=== PATIENT | male | born 1985 | race Caucasian/White ===

== ENCOUNTER 2019-02-24 15:37 | Outpatient (REF) | payer BC, SELFPAY ==
[2019-02-24 21:23] LABS: Abs Immature Grans 0.01 k/cumm (0.0-0.09); Absolute Basophil Count 0.03 k/cumm (0.0-0.2); Absolute Eosinophil Count 0.11 k/cumm (0.0-0.7); Absolute Lymphocyte Count 2.18 k/cumm (1.2-3.4); Absolute Monocyte Count 0.79 k/cumm (0.11-0.7); Absolute Neutrophil Count 6.55 k/cumm (1.2-6.7); Basophils % 0.3; Eosinophils % 1.1; HGB 14.5 g/dL (13.5-17.5); Immature Grans % 0.1; Lymphocytes % 22.5; Mean Corp. HGB Concentration 34.5 g/dL (32.0-36.0); Mean Corpuscular Hemoglobin 29.4 pg (27.0-33.0); Mean Corpuscular Volume 85.2 fL (80-95); Monocytes % 8.2; Neutrophils % 67.8; Platelet Count 195 x1000/uL (130-400); RBC 4.93 m/cumm (4.50-6.00); RBC Distribution Width 12.1 % (11.8-14.1); White Blood Cell Count 9.67 k/cumm (4.4-10.8)
[2019-02-24 21:28] LABS: ALT 29 U/L (12-78); AST 12 U/L (15-37); Alkaline Phosphatase 79 U/L (46-116); Anion Gap 8.4 mmol/L (3-11); BUN 14 mg/dL (7-18); Bilirubin, Total 0.5 mg/dL (0.2-1.0); CO2 26.6 mmol/L (21.0-32.0); CREATININE 0.88 mg/dL (0.70-1.30); Calcium 9.4 mg/dL (8.5-10.1); Chloride 107 mmol/L (98-107); Glucose 103 mg/dL (70-100); Sodium 142 mmol/L (136-145); TSH 0.61 uIU/mL (0.36-3.74); Total Protein 6.8 g/dL (6.4-8.2)
== END 2019-02-24 15:57 ==
LOC: NCHCN 15:37
PROVIDERS: PCP Nurse Practitioner Family; Visit Provider Registered Nurse
DX: M79.10 Myalgia, unspecified site (principal); R53.83 Other fatigue; R21 Rash and other nonspecific skin eruption; E66.9 Obesity, unspecified
CPT/HCPCS: 80053; 84443; 85025

== ENCOUNTER 2019-09-20 17:37 | Outpatient (REF) | payer BC, SELFPAY ==
[2019-09-22 05:04] LABS: Vitamin D 25 Total 20.3 ng/ml (30-100)
== END 2019-09-20 17:57 ==
LOC: NCHCN 17:37
PROVIDERS: PCP Nurse Practitioner Family; Visit Provider Nurse Practitioner Family
DX: R53.83 Other fatigue (principal)
CPT/HCPCS: 82306

== ENCOUNTER 2019-11-11 20:55 | Outpatient (REF) | payer BC, SELFPAY ==
[2019-11-15 17:34] LABS: 5-Hydroxyindoleacetic Acid, U 4.3 mg/24 h (<=7.7); Urine Volume 2500 mL
== END 2019-11-11 21:15 ==
LOC: NCHCN 20:55
PROVIDERS: PCP Nurse Practitioner Family; Visit Provider Nurse Practitioner Family
DX: R42 Dizziness and giddiness (principal); E34.0 Carcinoid syndrome; L74.510 Primary focal hyperhidrosis, axilla
CPT/HCPCS: 81050; 83497

== ENCOUNTER 2020-04-03 20:32 | Outpatient (REF) | payer BC, SELFPAY ==
[2020-04-03 21:44] LABS: HCT 43.7 % (40.0-50.0); HGB 15.1 g/dL (13.5-17.5); MCH 28.8 pg (27.0-33.0); MCHC 34.6 % (32.0-36.0); MCV 83.4 fL (80-95); MPV 12.4 fL (8.0-11.0); Platelet Count 209 10^3/uL (130-400); RBC 5.24 10^6/uL (4.36-5.78); RDW 11.6 % (11.8-14.1); RDW-SD 34.9 fL; WBC 8.04 10^3/uL (4.4-10.8)
[2020-04-03 22:04] LABS: ALT 67 U/L (16-63); AST 25 U/L (15-37); Albumin 4.2 g/dL (3.4-5.0); Alkaline Phosphatase 75 U/L (46-116); Anion Gap 9.9 mmol/L (3-11); BUN 15 mg/dL (7-18); Bilirubin, Total 0.4 mg/dL (0.2-1.0); CO2 26.1 mmol/L (21.0-32.0); CREATININE 0.97 mg/dL (0.70-1.30); Calcium 9.3 mg/dL (8.5-10.1); Chloride 107 mmol/L (98-107); Glucose 91 mg/dL (74-106); Potassium 4.1 mmol/L (3.5-5.1); Sodium 143 mmol/L (136-145); Total Protein 7.2 g/dL (6.4-8.2)
[2020-04-05 15:01] LABS: Calcitonin <5.0 pg/mL (<=14.3)
[2020-04-06 10:52] LABS: Chromogranin A 59 ng/mL (<93)
[2020-04-10 10:11] LABS: Serotonin 123 ng/mL (<=230)
== END 2020-04-03 20:52 ==
LOC: LBN 20:32
PROVIDERS: Internal Medicine Endocrinology, Diabetes & Metabolism; PCP Nurse Practitioner Family; Visit Provider Internal Medicine Gastroenterology
DX: R42 Dizziness and giddiness (principal); R23.2 Flushing
CPT/HCPCS: 80053; 82533; 85027; 82308; 84260; 86316

== ENCOUNTER 2020-04-06 16:21 | Outpatient (REF) | payer BC, SELFPAY ==
[2020-04-06 21:08] LABS: Creatinine,Urine 167.14 mg/dL
[2020-04-06 21:14] LABS: Creatinine,24hr Ur 2.84 g/24hr (0.95-2.49); Total Volume 1700 ml
[2020-04-11 14:11] LABS: 5-Hydroxyindoleacetic Acid, U 4.6 mg/24 h (<=7.7); Urine Volume 1700 mL
[2020-04-11 22:35] LABS: Metanephrines, U 189 mcg/24 h; Normetanephrine, U 386 mcg/24 h; Total Metanephrines, U 575 mcg/24 h; Urine Volume 1700 mL
== END 2020-04-06 16:41 ==
LOC: NCHCN 16:21
PROVIDERS: PCP Nurse Practitioner Family; Visit Provider Nurse Practitioner Family
DX: R42 Dizziness and giddiness (principal); Z13.29 Encounter for screening for other suspected endocrine disorder
CPT/HCPCS: 81050; 82570; 83497; 83835

== ENCOUNTER 2020-07-09 16:28 | Outpatient (REF) | payer BC, SELFPAY ==
[2020-07-09 21:32] LABS: Calculated LDL 84 mg/dL (<100); Cholesterol 172 mg/dL (<200); HDL Cholesterol 34 mg/dL (40-60); Triglyceride 273 mg/dL (<150)
== END 2020-07-09 16:48 ==
LOC: NCHCN 16:28
PROVIDERS: PCP Nurse Practitioner Family; Visit Provider Nurse Practitioner Family
DX: Z00.00 Encounter for general adult medical examination without abnormal findings (principal); Z13.220 Encounter for screening for lipoid disorders
CPT/HCPCS: 80061